=== PATIENT | male | born 1940 | race Caucasian/White ===

== ENCOUNTER 2023-02-23 09:58 | Emergency (ER) | payer MEDICARE, OTHER ==
[2023-02-23 10:28] LABS: #Eosinphils 0.1 thou/uL (0.0-0.7); #Lymphocytes 0.8 thou/uL (1.20-3.40); #Monocytes 0.2 thou/uL (0.11-0.59); #Neutrophils 1.5 thou/uL (1.40-6.50); %Basophils 0.8 % (0.0-1.0); %Eosinophils 4.8 % (0.0-10.0); %Lymphocytes 29.4 % (21.0-51.0); %Monocytes 9.1 % (0.0-10.0); Anisocytosis SLIGHT = 6-15 cells (100X) (0-5/hpf); Hemoglobin 8.9 g/dL (14.0-18.0); Hypochromia SLIGHT = 6-15 cells (100X) (0-5/hpf); MDiff Complete? YES; Mean Corpuscular HGB CONC 29.7 g/dL (32.0-36.0); Mean Corpuscular Hemoglobin 25.9 pg (27.0-31.0); Mean Corpuscular Volume 87.1 fl (78.0-98.0); Mean Platelet Volume 6.2 fL (7.4-10.4); Ovalocytes SLIGHT = 2-5 cells (100X) (0-1/hpf); Platelet Count 117 10x3/uL (130-400); Poikilocytosis SLIGHT = 6-15 cells (100X) (0-5/hpf); RBC Distribution Width 19.3 % (11.5-14.5); Red Blood Cell (RBC) Count 3.45 mill/uL (4.70-6.10); Schistocytes SLIGHT = 2-5 cells (100X) (0-1/hpf); Tear Drops SLIGHT = 2-5 cells (100X) (0-1/hpf); White Blood Cell (WBC) Count 2.6 10x3/uL (4.8-10.8)
[2023-02-23 10:30] LABS: Platelet Adequacy Comment Appears Decreased
[2023-02-23 10:32] LABS: ALT (SGPT) 12 U/L (8-55); AST (SGOT) 16 U/L (5-34); Albumin 2.7 g/dL (3.4-4.8); Alkaline Phosphatase 118 U/L (40-110); Anion Gap 17 mmol/L (10-20); BUN (Urea Nitrogen) 54 mg/dL (8.4-25.7); Bilirubin, Total 0.8 mg/dL (0.2-1.2); Calc. Creatinine Clearance 0 mL/min (70-130); Calcium 8.1 mg/dL (7.8-10.44); Carbon Dioxide 26 mmol/L (23-31); Chloride 101 mmol/L (98-107); Estimated GFR 56; Globulin 3.1 g/dL (2.4-3.5); Glucose 93 mg/dL (83-110); Potassium 5.5 mmol/L (3.5-5.1); Protein, Total 5.8 g/dL (5.8-8.1); Sodium 138 mmol/L (136-145)
[2023-02-23 10:34] LABS: Troponin I 0.041 ng/mL (< 0.028)
== END 2023-02-23 11:56 ==
LOC: BURERS 09:58
DX: R41.82 Altered mental status, unspecified (principal); I13.0 Hypertensive heart and chronic kidney disease with heart failure and stage 1 through stage 4 chronic kidney disease, or unspecified chronic kidney disease; E11.22 Type 2 diabetes mellitus with diabetic chronic kidney disease; N18.30 Chronic kidney disease, stage 3 unspecified; I50.9 Heart failure, unspecified; E87.5 Hyperkalemia; I25.10 Atherosclerotic heart disease of native coronary artery without angina pectoris; M10.9 Gout, unspecified; E78.5 Hyperlipidemia, unspecified; Z79.82 Long term (current) use of aspirin; Z79.899 Other long term (current) drug therapy
CPT/HCPCS: 70450; 71045; 80053; 82140; 83605; 83880; 84443; 84484; 85025; 36415-59

== ENCOUNTER 2023-03-03 07:07 | Emergency (ER) | payer OTHER ==
[2023-03-03 08:03] LABS: #Eosinphils 0.1 thou/uL (0.0-0.7); #Monocytes 0.3 thou/uL (0.11-0.59); #Neutrophils 2.1 thou/uL (1.40-6.50); %Eosinophils 2.8 % (0.0-10.0); %Lymphocytes 28.4 % (21.0-51.0); %Monocytes 8.1 % (0.0-10.0); %Neutrophils 59.7 % (42.0-75.0); Hematocrit 29.1 % (42.0-52.0); Hemoglobin 8.6 g/dL (14.0-18.0); Mean Corpuscular HGB CONC 29.6 g/dL (32.0-36.0); Mean Corpuscular Hemoglobin 26.3 pg (27.0-31.0); Mean Corpuscular Volume 88.9 fl (78.0-98.0); Mean Platelet Volume 6.8 fL (7.4-10.4); Platelet Count 148 10x3/uL (130-400); RBC Distribution Width 18.8 % (11.5-14.5); Red Blood Cell (RBC) Count 3.28 mill/uL (4.70-6.10); White Blood Cell (WBC) Count 3.5 10x3/uL (4.8-10.8)
[2023-03-03 08:05] LABS: MDiff Complete? YES
[2023-03-03 08:17] LABS: ALT (SGPT) 22 U/L (8-55); AST (SGOT) 12 U/L (5-34); Albumin 2.7 g/dL (3.4-4.8); Alkaline Phosphatase 125 U/L (40-110); Anion Gap 13 mmol/L (10-20); BUN (Urea Nitrogen) 66 mg/dL (8.4-25.7); Bilirubin, Total 0.5 mg/dL (0.2-1.2); Calc. Creatinine Clearance 0 mL/min (70-130); Calcium 7.9 mg/dL (7.8-10.44); Carbon Dioxide 21 mmol/L (23-31); Chloride 104 mmol/L (98-107); Estimated GFR 50; Globulin 2.3 g/dL (2.4-3.5); Glucose 96 mg/dL (83-110); Magnesium 1.8 mg/dL (1.6-2.6); Sodium 132 mmol/L (136-145)
[2023-03-03 08:18] LABS: Troponin I 0.041 ng/mL (< 0.028)
[2023-03-03 08:28] LABS: Potassium 6.2 mmol/L (3.5-5.1)
[2023-03-03] MEDS ORDERED: Insulin Regular 300 UNITS/3 ML VIAL ONE (08:59)
[2023-03-03] MEDS ORDERED: Dextrose 50% Abboject 50 ML SYRINGE ONE (09:02)
== END 2023-03-03 09:47 | disposition short-term general hospital (02) ==
LOC: BURERS 07:07
DX: E87.5 Hyperkalemia (principal); I13.0 Hypertensive heart and chronic kidney disease with heart failure and stage 1 through stage 4 chronic kidney disease, or unspecified chronic kidney disease; E11.22 Type 2 diabetes mellitus with diabetic chronic kidney disease; N18.9 Chronic kidney disease, unspecified; I50.9 Heart failure, unspecified; R77.8 Other specified abnormalities of plasma proteins; I25.10 Atherosclerotic heart disease of native coronary artery without angina pectoris; E78.5 Hyperlipidemia, unspecified; M10.9 Gout, unspecified; Z79.82 Long term (current) use of aspirin; Z79.899 Other long term (current) drug therapy; Z95.0 Presence of cardiac pacemaker
CPT/HCPCS: 71045; 83735; 83880; 84484; 93005; 94760; 96374; 96375; J1815; J7999